=== PATIENT | female | born 1955 | race Caucasian/White ===

== ENCOUNTER 2022-12-12 13:57 | Emergency (ER) | payer MEDICARE, BC ==
[~2022-12-12] VITALS: Ht 162.6 cm; Wt 53.1 kg
--- NOTE | 2022-12-12 14:20 | NUR ---
Patient ambulated to room #4, informed of plan of care, MD was at bedside for exam. No s/s of any distress noted, attempted #2o g in left ac, unable to advance, blood was collected and sent to lab. EKG has been done for MD review, will continue to monitor.
[2022-12-12 14:22] LABS: HEMATOCRIT 35.6 % (31.2-41.9); MEAN CORPUSCULAR HEMOGLOBIN 28.8 uug (24.7-32.8); MEAN CORPUSCULAR VOLUME 87.2 fL (75.5-95.3); PLATELET COUNT (AUTO) 231 K/uL (179-408)
[2022-12-12 14:39] LABS: CARBON DIOXIDE 32 mmol/L (21-32); CHLORIDE 98 mmol/L (98-107); CREATININE 1.2 mg/dL (0.6-1.3); GLUCOSE 140 mg/dL (74-106); POTASSIUM 3.7 mmol/L (3.5-5.1); UREA NITROGEN, BLOOD 26 mg/dL (7-18)
--- NOTE | 2022-12-12 15:54 | NUR ---
Patient continues to rest without any c/o at this time. No change in primary assessment, aware awaiting 2nd trop results.
--- NOTE | 2022-12-12 16:43 | NUR ---
Up to bathroom and back to bed.
--- NOTE | 2022-12-12 17:01 | NUR ---
ACI given, remains stable for discharge home, states understanding.
[2022-12-12 17:03] VITALS: BP 112/65
== END 2022-12-12 17:06 | disposition home or self-care (01) ==
LOC: ER 13:57
DX: R07.89 Other chest pain (principal); E78.5 Hyperlipidemia, unspecified; I10 Essential (primary) hypertension; K21.9 Gastro-esophageal reflux disease without esophagitis
CPT/HCPCS: 36415; 71045; 84484; 85025; 93005; A4663